=== PATIENT | male | born 1935 | race Caucasian/White ===

== ENCOUNTER 2016-09-27 13:05 | Inpatient (IN) | payer MEDICARE, OTHER ==
[2016-09-27] MEDS ORDERED: fentaNYL CITRATE/PF 50 MCG/ML AMPUL IV ONE (13:49)
[2016-09-27] MEDS ORDERED: ONDANSETRON HCL/PF 2 MG/ML VIAL IV ONE (13:49)
[2016-09-27] MEDS ORDERED: KETOROLAC TROMETHAMINE 30 MG/ML VIAL IV ONE (13:49)
[2016-09-27] MEDS ORDERED: NORMAL SALINE 1,000 ML IV PRN (13:52)
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
[2016-09-27] MEDS ORDERED: MORPHINE SULFATE 2 MG/ML DISP.SYRIN IV ONE (14:05)
[2016-09-27] MEDS ORDERED: KETOROLAC TROMETHAMINE 30 MG/ML VIAL ONE (14:06)
[2016-09-27] MEDS ORDERED: ONDANSETRON HCL/PF 2 MG/ML VIAL ONE (14:06)
[2016-09-27] MEDS ORDERED: MORPHINE SULFATE 2 MG/ML DISP.SYRIN ONE (14:06)
[2016-09-27 14:18] LABS: Hematocrit 46.9 % (42.0-52.0); Hemoglobin 15.9 gm/dL (13.5-18.0); Mean Corpuscular Hemoglobin 31.9 pg (27-31); Mean Corpuscular Hgb Conc 33.9 g/dl (32-36); Mean Platelet Volume 9.7 fl (6.0-9.5); Neutrophil # 7.4 K/mm3 (1.3-6.0); Neutrophil % 88.3 % (42-75.0); Platelet Count 170 K/mm3 (150-450); Red Blood Count 4.99 M/mm3 (4.7-6.0); Red Cell Distribution Width 12.8 % (11.5-14.0); White Blood Count 8.3 K/mm3 (4.0-10.5)
[2016-09-27 14:42] LABS: ALT 27 U/L (19-67); AST 20 U/L (0-48); Albumin * 4.2 gm/dl (3.4-5.0); Alkaline Phosphatase * 106 U/L (50-170); Amylase * 113 U/L (25-115); Anion Gap 12.6 mmol/L (6.8-13.8); BUN/Creatinine Ratio 21.6 (9.0-21.6); Bilirubin, Total 0.5 mg/dL (0.0-1.1); Blood Urea Nitrogen 21 mg/dL (6-23); Ca. Corrected For Albumin 8.3 mg/dL (8.4-10.2); Calcium * 8.8 mg/dL (7.9-10.9); Carbon Dioxide 28.4 mmol/L (24-32.6); Chloride 103 mmol/L (97-106); Glucose * 109 mg/dL (70-110); Lipase 219 U/L (73-393); Sodium 139 mmol/L (132-142); Total Protein 7.1 gm/dL (6.2-8.2)
[2016-09-27 14:59] LABS: Troponin I Less than 0.017 ng/ml (0.00-0.10)
[2016-09-27 15:06] LABS: CK Total * 96 U/L (0-259)
[2016-09-27 16:06] LABS: Urine Bilirubin Negative (NEGATIVE); Urine Blood Negative /ul (NEGATIVE); Urine Ketone Negative (NEGATIVE); Urine Nitrite Negative (NEGATIVE); Urine Protein Negative (NEGATIVE); Urine Specific Gravity 1.025 SP.GR. (1.005-1.030); Urine Urobilinogen Normal (NORMAL); Urine pH 5.5 pH (5.0-7.0)
[2016-09-27 16:28] LABS: Urine Appearance Clear; Urine Bacteria None Seen; Urine Color Yellow; Urine RBC None Seen /hpf (0-5); Urine WBC None Seen /hpf (0-5)
[2016-09-27 17:05] LABS: Phenytoin 18.6 mcg/mL (10-20)
[2016-09-27] MEDS ORDERED: ceFAZolin SODIUM 2 GM in DEXTROSE 5 % IN WATER 100 ML IV ONE ×2 (18:15)
[2016-09-27] MEDS ORDERED: ceFAZolin SODIUM/DEXTROSE,ISO 2 GM in Premix Bag 1 BAG IV ONE (18:15)
[2016-09-27] MEDS ORDERED: MORPHINE SULFATE 4 MG/ML SYRG IV PRN (18:35)
--- NOTE | 2016-09-27 18:50 | OR ---
Operative Report - Dictated Report Narrative: OPERATIVE REPORT DATE OF OPERATION: 07/28/2017 PREOPERATIVE DIAGNOSIS: Right pneumothorax POSTOPERATIVE DIAGNOSIS: Right pneumothorax (relieved) OPERATION: Insertion of right chest tube SURGEON: Nimisha Silver MD ANESTHESIA: Local 0.5% Marcaine with epinephrine INDICATIONS FOR PROCEDURE: The patient is an 81-year-old male who fell off of the bottom 3 steps of a ladder. Chest x-ray revealed small right pneumothorax. Subsequent chest CT revealed fracture of the right first rib with enlarging right pneumothorax (60%) and subcutaneous emphysema FINDINGS: Successful placement of the right chest tube NARRATIVE OF PROCEDURE: The patient was identified preoperatively and a multidisciplinary timeout was observed. The patient's right chest was prepped with DuraPrep and isolated with 4 sterile towels. A point was chosen lateral to the right nipple in the anterior axillary line. The skin, subcutaneous tissue, and periosteum of the chosen rib were anesthetized with 0.5% Marcaine with epinephrine. A 1 cm skin incision was made. The right chest was accessed with a 20 Setswana trocar catheter which was directed anteriorly and superiorly. The chest tube was connected to underwater seal with evidence of evacuation of air. The tube was then secured to the chest wall with a silk suture and a sterile dressing applied. The tube was additionally taped to the anterior abdominal wall. The patient tolerated the anesthetic and procedure well without complication. There was no measurable blood loss. A postprocedure chest x-ray was obtained. This demonstrated good tube position and gross evidence of reexpansion of the right lung. There was significant subcutaneous emphysema. The patient was transferred to the floor awake and in stable condition. He will be admitted to acute care status for further treatment. Reviewed and electronically signed
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
[2016-09-27] MEDS: oxyCODONE HCL/ACETAMINOPHEN 1 TAB TABLET PO PRN (20:50)
[2016-09-27] MEDS: PHENYTOIN SODIUM EXTENDED 100 MG CAPSULE PO SCH (20:57)
[2016-09-27] MEDS: BETA-CAROTENE(A) W-C , E/MIN 1 TAB TABLET PO SCH (21:00)
[2016-09-27] MEDS: PHENobarbital 30 MG TABLET PO SCH (21:00)
[2016-09-27] MEDS ORDERED: PHENYTOIN SODIUM EXTENDED 100 MG CAPSULE PO SCH (21:00)
[2016-09-27] MEDS ORDERED: ceFAZolin SODIUM 1 GM in DEXTROSE 5 % IN WATER 100 ML IV SCH ×2 (23:55)
[2016-09-28] MEDS: ceFAZolin SODIUM 1 GM in DEXTROSE 5 % IN WATER 100 ML IV SCH ×8 (00:49→19:53)
[2016-09-28] MEDS: PHENYTOIN SODIUM EXTENDED 100 MG CAPSULE PO SCH ×2 (08:24→20:47)
[2016-09-28] MEDS: BETA-CAROTENE(A) W-C , E/MIN 1 TAB TABLET PO SCH ×2 (08:24→20:47)
[2016-09-28] MEDS: FAMOTIDINE 20 MG TABLET PO SCH (08:24)
[2016-09-28] MEDS: PHENobarbital 30 MG TABLET PO SCH ×2 (08:26→20:51)
[2016-09-28] MEDS: oxyCODONE HCL/ACETAMINOPHEN 1 TAB TABLET PO PRN ×4 (08:30→19:50)
--- NOTE | 2016-09-28 09:39 | PN ---
Dictated Progress Note - Date and Time Seen: Date: 09/28/16 Time: 09:34 - Progress Note Narrative: Vital Signs - Last Taken Temp 36.9 C 09/27/16 21:00 Pulse 68 09/28/16 06:03 Resp 18 09/28/16 06:03 BP 136/69 09/28/16 06:03 Pulse Ox 97 09/28/16 06:03 VS normal. Sa02 has been good on RA. Some pain from chest tube. Only other apparent injury is abrasion left elbow. Subcutaneous air upper chest and neck. Tube functioning well, still suspect small leak. CXR shows re-expansion right lung. No BM yet--unusual for him, but no abdominal pain (?from narcotic). Will continue suction on chest tube. Up to chair. bedside commode. Increase Percocet dose. Re-evaluate later today re: chest tube suction, but anticipate another midnight stay.
[2016-09-28] MEDS: MORPHINE SULFATE 2 MG/ML DISP.SYRIN IV PRN ×3 (16:48→20:59)
[2016-09-29] MEDS: ceFAZolin SODIUM 1 GM in DEXTROSE 5 % IN WATER 100 ML IV SCH ×8 (01:23→18:39)
[2016-09-29] MEDS: oxyCODONE HCL/ACETAMINOPHEN 1 TAB TABLET PO PRN ×3 (04:34→18:39)
[2016-09-29] MEDS: MORPHINE SULFATE 2 MG/ML DISP.SYRIN IV PRN ×3 (05:09→21:32)
[2016-09-29] MEDS: RINGERS SOLUTION,LACTATED 1,000 ML IV PRN (06:46)
[2016-09-29] MEDS: ONDANSETRON HCL/PF 2 MG/ML VIAL IV PRN ×2 (08:54→13:25)
[2016-09-29] MEDS: FAMOTIDINE 20 MG TABLET PO SCH (09:28)
[2016-09-29] MEDS: BETA-CAROTENE(A) W-C , E/MIN 1 TAB TABLET PO SCH ×2 (09:28→21:29)
[2016-09-29] MEDS: PHENYTOIN SODIUM EXTENDED 100 MG CAPSULE PO SCH ×2 (09:28→21:28)
[2016-09-29] MEDS: PHENobarbital 30 MG TABLET PO SCH ×2 (09:33→21:32)
--- NOTE | 2016-09-29 15:28 | PN ---
Dictated Progress Note - Date and Time Seen: Date: 09/29/16 Time: 15:27 - Progress Note Narrative: Vital Signs - Last Taken Temp 36.7 C 09/29/16 15:09 Pulse 57 L 09/29/16 15:09 Resp 20 09/29/16 15:09 BP 132/67 09/29/16 15:09 Pulse Ox 99 09/29/16 15:09 VS have remained normal, Sa02 good. CXR shows re-expansion off suction, but clinically small leak. Will reconnect suction to tube with increase to 24cm. Re-check CXR in AM.
[2016-09-30] MEDS: ceFAZolin SODIUM 1 GM in DEXTROSE 5 % IN WATER 100 ML IV SCH ×8 (00:49→20:06)
[2016-09-30] MEDS: oxyCODONE HCL/ACETAMINOPHEN 1 TAB TABLET PO PRN (00:53)
[2016-09-30] MEDS: MORPHINE SULFATE 2 MG/ML DISP.SYRIN IV PRN ×6 (03:18→18:09)
[2016-09-30] MEDS: ONDANSETRON HCL/PF 2 MG/ML VIAL IV PRN ×2 (07:23→17:22)
[2016-09-30] MEDS ORDERED: PANTOPRAZOLE SODIUM 40 MG in NORMAL SALINE 100 ML IV ONE (07:35)
[2016-09-30] MEDS: RINGERS SOLUTION,LACTATED 1,000 ML IV PRN (10:49)
[2016-09-30] MEDS: PHENobarbital 30 MG TABLET PO SCH ×2 (10:53→20:11)
[2016-09-30] MEDS: PHENYTOIN SODIUM EXTENDED 100 MG CAPSULE PO SCH ×2 (10:59→20:10)
[2016-09-30] MEDS: FAMOTIDINE 20 MG TABLET PO SCH (10:59)
[2016-09-30] MEDS: BETA-CAROTENE(A) W-C , E/MIN 1 TAB TABLET PO SCH ×2 (10:59→20:10)
[2016-09-30] MEDS ORDERED: NALOXONE HCL 1 MG/1 ML SYRG IV PRN (18:53)
[2016-09-30] MEDS ORDERED: diphenhydrAMINE HCL 50 MG/ML VIAL IV PRN (18:53)
[2016-09-30] MEDS ORDERED: HYDROmorphone HCL IN 0.9% NACL 50 ML CARTRIDGE IV PRN (18:53)
--- NOTE | 2016-09-30 19:02 | PN ---
Dictated Progress Note - Date and Time Seen: Date: 09/30/16 Time: 18:59 - Progress Note Narrative: Vital Signs - Last Taken Temp 36.7 C 09/30/16 15:11 Pulse 72 09/30/16 15:11 Resp 16 09/30/16 15:11 BP 149/70 09/30/16 15:11 Pulse Ox 91 09/30/16 15:11 Did not tolerate initial clamping of chest tube, however second trial has been tolerated and CXR shows lung remains expanded. Will continue clamping and re-check CXR in AM unless problems. Will change to [facility] for better analgesia.
[2016-10-01] MEDS: ceFAZolin SODIUM 1 GM in DEXTROSE 5 % IN WATER 100 ML IV SCH ×6 (02:35→14:33)
[2016-10-01] MEDS: FAMOTIDINE 20 MG TABLET PO SCH (09:14)
[2016-10-01] MEDS: BETA-CAROTENE(A) W-C , E/MIN 1 TAB TABLET PO SCH (09:14)
[2016-10-01] MEDS: PHENYTOIN SODIUM EXTENDED 100 MG CAPSULE PO SCH (09:14)
[2016-10-01] MEDS: ONDANSETRON HCL/PF 2 MG/ML VIAL IV PRN (09:15)
[2016-10-01] MEDS: PHENobarbital 30 MG TABLET PO SCH (10:06)
--- NOTE | 2016-10-01 17:26 | DS ---
(1) Pneumothorax, acute Problem: Acute (2) Rib fracture Problem: Acute Qualifiers: Encounter type: initial encounter Rib fracture type: single rib Fracture type: closed Laterality: right Qualified Code(s): S22.31XA - Fracture of one rib, right side, initial encounter for closed fracture Description of Stay: He presented to the ER after falling off of a ladder. He was found to have a right pneumothorax which increased in size. A right chest tube was placed with re-expansion of the lung and he was admitted for pain control and monitoring. His VS remained normal and althought the lung remained expanded, he did have an ongoing air leak which eventually resolved with increase in suction to 24cm. Trial clamping of the tube was successful and the tube was removed with occlusive dressing placed. He is released to his home, however will require Home Health assistance. Procedures Performed: see notes below - insertion of right chest tube Discharge Disposition: Home self care Disposition: Home self-care Condition: Good Discharge Activity: Activity as tolerated Discharge Diet: General/regular food Additional Patient Instructions (free text): [email or web address].Please fax orders, face to face, H&P D/C Summary and face sheet upon discharge. f/u with dr ríos 10/04 at 230pm. Prescriptions (Any new or edited meds): Ondansetron HCl/Pf [Zofran] 4 mg IV Q4H PRN #4 tab PRN Reason: Nausea Complete Home Medications List: Complete Home Medication List: Famotidine 20 mg PO DAILY 09/27/16 Phenobarbital 64.8 mg PO BID 09/27/16 Phenytoin Sodium Extended [Dilantin] 200 mg PO BID 09/27/16 Vit A/Vit C/Vit E/Zinc/Copper [Preservision Areds Softgel] 1 each PO BID Ondansetron HCl/Pf [Zofran] 4 mg IV Q4H PRN #4 tab 10/01/16
[2016-10-01 18:29] VITALS: BP 143/84
== END 2016-10-01 19:10 | disposition home health service (06) | DRG 200 ==
LOC: ER 13:05 → MS 18:22
PROVIDERS: ADMIT Surgery; ATTEND Surgery
PROC: 0W9930Z Drainage of Right Pleural Cavity with Drainage Device, Percutaneous Approach (ICD-10-PCS; principal; 2016-09-27)
DX: S27.0XXA Traumatic pneumothorax, initial encounter (principal); S22.31XA Fracture of one rib, right side, initial encounter for closed fracture; R56.9 Unspecified convulsions; W11.XXXA Fall on and from ladder, initial encounter; Y92.009 Unspecified place in unspecified non-institutional (private) residence as the place of occurrence of the external cause

== ENCOUNTER 2016-10-02 07:58 | Emergency (ER) | payer MEDICARE, OTHER ==
[2016-10-02] MEDS ORDERED: ONDANSETRON HCL/PF 2 MG/ML VIAL IV ONE (08:21)
[2016-10-02] MEDS ORDERED: NORMAL SALINE 1,000 ML IV ONE (08:22)
[2016-10-02 08:37] LABS: Hematocrit 42.5 % (42.0-52.0); Hemoglobin 15.1 gm/dL (13.5-18.0); Mean Corpuscular Hgb Conc 35.5 g/dl (32-36); Mean Platelet Volume 9.2 fl (6.0-9.5); Neutrophil # 6.4 K/mm3 (1.3-6.0); Neutrophil % 80.2 % (42-75.0); Platelet Count 217 K/mm3 (150-450); Red Blood Count 4.72 M/mm3 (4.7-6.0); Red Cell Distribution Width 12.8 % (11.5-14.0)
[2016-10-02] MEDS ORDERED: ONDANSETRON HCL/PF 2 MG/ML VIAL ONE (08:55)
[2016-10-02 08:59] LABS: Albumin * 3.7 gm/dl (3.4-5.0); Anion Gap 14.1 mmol/L (6.8-13.8); BUN/Creatinine Ratio 29.8 (9.0-21.6); Bilirubin, Total 0.7 mg/dL (0.0-1.1); Ca. Corrected For Albumin 8.5 mg/dL (8.4-10.2); Calcium * 8.6 mg/dL (7.9-10.9); Carbon Dioxide 28.6 mmol/L (24-32.6); Potassium 4.7 mmol/L (3.4-4.6); Total Protein 7.1 gm/dL (6.2-8.2)
[2016-10-02 09:09] LABS: Troponin I 0.32 ng/ml (0.00-0.10)
[2016-10-02] MEDS ORDERED: ASPIRIN 81 MG TAB.CHEW PO ONE (09:30)
[2016-10-02] MEDS ORDERED: ASPIRIN 81 MG TAB.CHEW ONE (09:35)
[2016-10-02 09:44] LABS: INR 1.08 INR (0.90-1.10); Partial Thrombolplastin Time 28.7 Seconds (24-32); Prothrombin Time (Patient) 11.2 Seconds (9.4-11.4)
--- NOTE | 2016-10-02 09:54 | ERNOTE ---
Abdominal HPI - Narrative Date of Service: 10/02/16 - General Chief Complaint: General Assessment Source: patient, family Exam Limitations: no limitations - Immun/Allergies/Home Medications Immunizatons: IMMUNIZATION HX Immunizations Up to Date Yes History of Influenza Vaccine More Information Required Hx Pneumococcal Vaccination More Information Required Allergies/Adverse Reactions: Allergies iv contrast dye Allergy (Severe, Uncoded 10/02/16 08:09) Anaphylaxis Verified with patient. Home Medications: HOME MEDICATIONS Famotidine 20 mg PO DAILY 09/27/16 [Last Taken Unknown] Phenobarbital 64.8 mg PO BID 09/27/16 [Last Taken Unknown] Phenytoin Sodium Extended [Dilantin] 200 mg PO BID 09/27/16 [Last Taken Unknown] Vit A/Vit C/Vit E/Zinc/Copper [Preservision Areds Softgel] 1 each PO BID [Last Taken Unknown] Ondansetron HCl/Pf [Zofran] 4 mg IV Q4H PRN #4 tab 10/01/16 [Last Taken Unknown] - History of Present Illness Narrative: Patient who comes due to vomiting, LUQ Abdominal Pain, and feeling weak. Patient has just been discharged after a fall that resulted on a R side pneumothorax that required a chest tube placement. Patient was given Morphine to control his pain. Timing: intermittent Quality: mild, dullness, sharpness Activities at Onset: none Modifying Factors - (Improves): Present: other - Nothing Modifying Factors - (Worsens): Present: analgesics, movement, vomiting Associated Symptoms: Present: diaphoresis, vomiting, loss of appetite, weakness. Absent: chest pain, neck pain, diarrhea-gross blood, diarrhea-mucous , shortness of breath, syncope Prior Abdominal Problems: Present: recent trauma Prior Treatment: Present: recently seen, recently hospitalized Comment: Patient came due to vomiting Review of Systems - Review of Systems Constitutional: Present: diaphoresis, weakness, malaise. Absent: fever, chills EYE: Present: no symptoms reported ENT: Present: no symptoms reported Respiratory: Absent: shortness of breath, cough Cardiology: Absent: chest pain, palpitations, syncope, edema, claudication Gastrointestinal/Abdominal: Present: nausea, vomiting, constipation, abdominal pain - LUQ Area Genitourinary: Present: no symptoms reported Musculoskeletal: Present: no symptoms reported Skin: Absent: rash, lesions Neurological: Present: no symptoms reported Endocrine: Present: no symptoms reported Hematologic/Lymphatic: Absent: easy bruising, easy bleeding Psych: Present: no symptoms reported - Patient's Past Medical History Patient History - Medical: Seizures, Other Patient History - Cancer: No Hx of Cancer Patient History - Surgical Procedures: Other - Family History Mother Family History - Medical: - Social History Living Situations: home Alcohol Use: none Drug Use: none Physical Exam - Physical Exam General Appearance: Present: wd/wn, alert, no apparent distress, thin Eye Exam: Normal inspection: bilateral, PERRL: bilateral, EOMI: bilateral Ears, Nose, Throat: Present: normal ENT inspection, hearing grossly normal, normal pharynx Neck: Present: normal inspection, nontender Respiratory: Present: no respiratory distress, normal breath sounds, no accessory muscle use, other - Patient has a R side scar after a chest tube insertion. No sign of infection. Absent: chest nontender, rhonchi, wheezing Cardiovascular/Chest: Present: regular rate, rhythm, normal peripheral pulses, systolic murmur, chest tenderness - R side Peripheral Pulses: N=norm/S=strong/W=weak/B=bound/A=absent: Carotid (R): Normal , Carotid (L): Normal, Radial (R): Normal, Radial (L): Normal, Dorsalis-pedis (R ): Normal, Dorsalis-pedis (L): Normal Gastrointestinal/Abdominal: Present: tenderness - Generalized, distended - Mild , guarding. Absent: rebound, mass Back Exam: Present: normal inspection, no CVA tenderness Extremity Exam: Present: normal inspection, non-tender, no edema, normal range of motion Neurological Exam: Present: alert, oriented, normal mood/affect, no motor/ sensory deficits Skin Exam: Present: normal color, warm/dry. Absent: diaphoresis, cyanosis, jaundice, skin rash Lymphatic Exam: Present: no adenopathy ED Progress - Date and Time Seen: Date and Time: 10/02/16 09:[address] Elevations, LUQ Pain, and Elevated Troponins. Patient at the moment will not be given Heparin due to recent Chest Tube insertion. I had presented case to Dr. Mayorga who agreed to transfer of patient to a facility with Cardiac Cath. I called to [facility] and presented case to Dr. Gian Qiu who accepted case. Patient and family were informed of finding and need to transfer due to the need of further cardiac work up. - Results and Orders Patient's Lab Results:: I have reviewed the patient's lab results. Results and Orders: Patient was found with elevated Troponin - Vital Signs Patient's Vital Signs:: I have reviewed the patient's vital signs. Vital Signs: Vital Signs 10/02/16 10/02/16 10/02/16 08:01 09:18 09:38 Temperature 36.3 C L Pulse Rate 82 76 77 Respiratory 12 20 19 Rate Blood Pressure 154/81 155/80 155/80 O2 Sat by Pulse 95 92 92 Oximetry - EKG EKG: NSR, no ST T wave changes EKG read: Interp. by me EKG Comments: HR: 73, [place] is normal, No ST Elevation, No changes to previous EKG (09/27/2016) - CT/Ultrasound CT/Ultrasound Narrative: Radiology Report was read: Ileus, Moderate Retained Stools, Extensive subcutaneous emphysema on the R, Small Bilateral Pleural Effusions with Bibasal Consolidation - Progress/Reassessment Chief Complaint: General Assessment Progress:: Pain free at discharge - Transfer of Care Expected Disposition: Transfer Departure - Departure Clinical Impression: Non-ST elevation ND (NSTEMI) Disposition: [facility] Condition: Stable Referrals: Ladi Curry, SUPERVISOR NURSE [Primary Care Provider] -
[2016-10-02 10:00] VITALS: BP 150/78
[2016-10-02] MEDS ORDERED: LEVOFLOXACIN/D5W 750 MG/150 ML BAG IV SCH (10:00)
== END 2016-10-02 10:24 | disposition short-term general hospital (02) ==
LOC: ER 07:58
DX: I21.4 Non-ST elevation (NSTEMI) myocardial infarction (principal)